=== PATIENT | female | born 1990 | race Caucasian/White ===

== ENCOUNTER 2018-06-24 12:31 | Emergency (ER) | payer OTHER, SELFPAY ==
[2018-06-24 12:35] VITALS: BP 142/91; PULSE 91; RESP 16; TEMP 36.6; O2SAT 99
--- NOTE | 2018-06-24 12:35 | ED_ITS ---
HPI - Nausea/Vomiting/Diarrhea <Lorena Solares PA-C - Last Filed: 06/24/18 18:22> General Chief complaint: Nausea/Vomiting/Diarrhea Stated complaint: ABD PAIN,NAUSEA AND VOMITING Time Seen by Provider: 06/24/18 12:33 Source: patient Mode of arrival: ambulatory Limitations: no limitations History of Present Illness HPI Narrative: This 28-year-old female complains of onset of right upper quadrant and flank area pain on Tuesday along with nausea. She states that she vomited once and felt quite a bit better, still had some low level pain but able to go about her usual activities. She states that she does have this type of pain and nausea occasionally but usually resolves on its own. She thinks it was triggered by food because she was at a dinner libertarian and eating lots of different foods that she normally does not knee. She states that she has had some milder waxing and waning pain since then until today, but since this morning and has been persistent without any exacerbating or alleviating features. It tends to stay up in the right upper quadrant but can radiate around to her flank a little bit at times. She states that she has persistent nausea and has not had any fluid today because she is afraid she can't keep it down. She did have a bagel and cream cheese earlier. She denies any fever, chills, sweats. She denies any chest pain or dyspnea. She states that she has occasional mild heartburn. she denies fever, chills, or sweats.She denies any urinary symptoms. She denies any Bowel habit changes, states she has chronic loose stools, none today. She denies any possibility of , compliant with OCP. She states that she does think her pain typically is triggered by fatty foods such as gunn. Related Data Previous Rx's Medication Instructions Recorded escitalopram 10 mg tablet See Label Instructions PO QDAY 06/21/18 #135 tab norgestimate 0.18 mg/0.215 mg/0.25 1 tab PO DAILY #84 tab 06/21/18 mg-ethinyl estradiol 25 mcg tablet ondansetron HCl [Zofran] 4 mg PO Q6-8H PRN #7 tab 06/24/18 Allergies Allergy/AdvReac Type Severity Reaction Status Date / Time No Known Drug Allergies Allergy Unknown Verified 06/21/18 10:06 Review of Systems <Lorena Solares PA-C - Last Filed: 06/24/18 18:22> Review of Systems All systems reviewed & are unremarkable except as noted in HPI and below Exam <Lorena Solares PA-C - Last Filed: 06/24/18 18:22> Narrative Exam Narrative: GENERAL APPEARANCE: Patient sitting comfortably, in no distress. HEENT: PERRL, EOMI, no scleral icterus NECK: Supple LUNGS: Clear to auscultation bilaterally. HEART: Rate and rhythm regular, normal S1 and S2, no S3 or S4. ABDOMEN: Soft, nondistended, bowel sounds present x 4 quadrants, no masses palpable, no hepatosplenomegaly. Right upper quadrant tender with +Urena's sign, no guarding or rebound, no tenderness elsewhere, no CVAT EXTREMITIES: No edema DERMATOLOGIC: No jaundice or exanthem NEUROLOGIC: Alert and oriented with normal speech and coordination Initial Vital Signs Initial Vital Signs: Vital Signs Temperature 97.8 F 06/24/18 12:35 Pulse Rate 91 H 06/24/18 12:35 Respiratory Rate 16 06/24/18 12:35 Blood Pressure 142/91 H 06/24/18 12:35 Pulse Oximetry 99 06/24/18 12:35 <Angie Mcbride DO - Last Filed: 06/26/18 07:12> Initial Vital Signs Initial Vital Signs: Vital Signs Temperature 97.8 F 06/24/18 12:35 Pulse Rate 91 H 06/24/18 12:35 Respiratory Rate 16 06/24/18 12:35 Blood Pressure 142/91 H 06/24/18 12:35 Pulse Oximetry 99 06/24/18 12:35 Course <Lorena Solares PA-C - Last Filed: 06/24/18 18:22> Additional Information: Patient was feeling significantly improved prior to departure. She did not have any vomiting while here. Her pain has been chronic , recently exacerbated by diet changes/fatty foods, which she was advised to avoid Orders Ordered: Discontinued Medications Sodium Chloride (Normal Saline 0.9%) 1,000 mls @ 1,000 mls/hr IV BOLUS ONE Stop: 06/24/18 13:50 Last Infusion: 06/24/18 15:02 Dose: 0 mls/hr Admin: 06/24/18 13:21 Dose: 1,000 mls/hr Ketorolac Tromethamine (Toradol) 30 mg IV NOW ONE Stop: 06/24/18 12:50 Last Admin: 06/24/18 13:21 Dose: 30 mg Ondansetron HCl (Zofran Odt) 4 mg PO NOW ONE Stop: 06/24/18 12:50 Ondansetron HCl (Zofran) 4 mg IV NOW ONE Stop: 06/24/18 13:26 Last Admin: 06/24/18 13:27 Dose: 4 mg Pantoprazole Sodium (Protonix) 40 mg IV NOW ONE Stop: 06/24/18 12:50 Last Admin: 06/24/18 13:24 Dose: 40 mg Vital Signs - 8 hr 06/24/18 12:35 06/24/18 13:30 Temperature 97.8 F Pulse Rate 91 H 76 Respiratory Rate 16 Blood Pressure 142/91 H Blood Pressure [Right Arm] 127/56 L Pulse Oximetry 99 99 <Angie Mcbride, - Last Filed: 06/26/18 07:12> Orders Ordered: Discontinued Medications Sodium Chloride (Normal Saline 0.9%) 1,000 mls @ 1,000 mls/hr IV BOLUS ONE Stop: 06/24/18 13:50 Last Infusion: 06/24/18 15:02 Dose: 0 mls/hr Admin: 06/24/18 13:21 Dose: 1,000 mls/hr Ketorolac Tromethamine (Toradol) 30 mg IV NOW ONE Stop: 06/24/18 12:50 Last Admin: 06/24/18 13:21 Dose: 30 mg Ondansetron HCl (Zofran Odt) 4 mg PO NOW ONE Stop: 06/24/18 12:50 Ondansetron HCl (Zofran) 4 mg IV NOW ONE Stop: 06/24/18 13:26 Last Admin: 06/24/18 13:27 Dose: 4 mg Pantoprazole Sodium (Protonix) 40 mg IV NOW ONE Stop: 06/24/18 12:50 Last Admin: 06/24/18 13:24 Dose: 40 mg Vital Signs - 8 hr 06/24/18 12:35 06/24/18 13:30 Temperature 97.8 F Pulse Rate 91 H 76 Respiratory Rate 16 Blood Pressure 142/91 H Blood Pressure [Right Arm] 127/56 L Pulse Oximetry 99 99 MDM - Nausea/Vomiting/Diarrhea <Lorena Solares PA-C - Last Filed: 06/24/18 18:22> Lab Data Attestation: I reviewed the patient's lab results. Result diagrams: 06/24/18 13:05 06/24/18 13:05 Lab Results 06/24/18 06/24/18 Range/Units 13:05 13:05 WBC 8.8 (4.5-11.0) X10^3/uL RBC 4.40 (4.0-5.2) X10^6/uL Hgb 12.7 (12.0-16.0) g/dL Hct 37.8 (36-46) % MCV 86.0 (80-100) fL MCH 29.0 (26-34) PG MCHC 33.7 (30-36) % RDW 14.1 (11.6-14.8) % Plt Count 352 (150-400) X10^3/uL Neut % (Auto) 67.0 (50-75) % Lymph % (Auto) 23.1 L (25-40) % [place] % (Auto) 7.1 (3-14) % Eos % (Auto) 1.8 L (2-4) % Baso % (Auto) 1.0 (0-2) % Neut # (Auto) 5900 (0908-0030) /uL Sodium 141 (137-145) mmol/L Potassium 4.3 (3.4-5.1) mmol/L Chloride 106 (98-107) mmol/L Carbon Dioxide 24 (22-32) mmol/L BUN 13 (7-17) mg/dL Creatinine 0.60 (0.52-1.04) mg/dL Estimated GFR > 60.0 (>60) mL/min BUN/Creatinine Ratio 21.7 (6-22) Glucose 91 (70-100) mg/dL Calcium 8.9 (8.4-10.2) mg/dL Total Bilirubin 0.3 (0.2-1.3) mg/dL AST 21 (14-36) IU/L ALT 22 (9-52) IU/L Alkaline Phosphatase 65 (38-126) U/L Total Protein 7.7 (6.3-8.2) g/dL Albumin 4.0 (3.5-5.0) g/dL Globulin 3.7 (1.7-4.1) g/dL Albumin/Globulin Ratio 1.1 (1.0-2.8) Lipase 50 (23-300) U/L Point of Care Testing Test Results Negative Urine Dip Bedside Urine Glucose Negative Bedside Urine Bilirubin - Negative Bedside Urine Ketone - Negative Urine Specific [place] 1.030 Bedside Urine Occult Blood - Negative Bedside Urine pH 6.0 Bedside Urine Protein - Negative Bedside Urine Urobilinogen - Negative Bedside Urine Nitrite - Negative Bedside Urine Leukocytes - Negative Esterase Imaging Data US - abdomen: Radiologist's impression: [address] [id number] Ultrasound Report Signed Patient: Ursula Burns [facility]#: [id number] : 1990Acct:[id number] Age/Sex: 28 / FDate of Service: 06/24/18 Loc: ED Accession Number: [id number] Procedure: US abdomen complete Ordering Provider: Lorena Solares P.A-C PROCEDURE: US ABDOMEN COMPLETE INDICATIONS: ruq pain TECHNIQUE: Real-time scanning was performed of the abdominal and retroperitoneal organs, with image documentation. COMPARISON: None. FINDINGS: Liver: Liver is normal in size and homogeneous in echotexture. Gallbladder: Gallbladder is sonographically normal. No gallstones. No gallbladder wall thickening. No pericholecystic fluid. No sonographic Urena sign. Biliary ducts: Intrahepatic bile ducts are non-dilated. Extrahepatic bile duct caliber measures 5.0 mm. Normal is 6-7 mm or less in diameter, or 10 mm or less post-cholecystectomy. Pancreas: Visualized portions of the pancreas are sonographically normal. Spleen: Spleen is normal in size and homogeneous in echotexture. Kidneys: Kidneys are normal in size and echotexture. Right kidney measures 11.5 cm long; left kidney measures 13.0 cm long. No hydronephrosis or nephrolithiasis. No solid masses. Aorta: Visualized aorta is normal in caliber at less than 3 cm. distal segment not visualized due to bowel gas and cannot be evaluated. Iliacs: Not visualized due to bowel gas and cannot be evaluated. IVC: Intrahepatic inferior vena cava is patent. Miscellaneous: No free abdominal fluid. IMPRESSION: No sonographic abnormality identified. Dictated by: Emily Alcaraz MD, PhD on 06/24/2018 at 13:51 Approved by: Emily Alcaraz MD, PhD on 06/24/2018 at 13:52 <Angie Chad Mcbride, DO - Last Filed: 06/26/18 07:12> Lab Data Lab Results 06/24/18 06/24/18 Range/Units 13:05 13:05 WBC 8.8 (4.5-11.0) X10^3/uL RBC 4.40 (4.0-5.2) X10^6/uL Hgb 12.7 (12.0-16.0) g/dL Hct 37.8 (36-46) % MCV 86.0 (80-100) fL MCH 29.0 (26-34) PG MCHC 33.7 (30-36) % RDW 14.1 (11.6-14.8) % Plt Count 352 (150-400) X10^3/uL Neut % (Auto) 67.0 (50-75) % Lymph % (Auto) 23.1 L (25-40) % [place] % (Auto) 7.1 (3-14) % Eos % (Auto) 1.8 L (2-4) % Baso % (Auto) 1.0 (0-2) % Neut # (Auto) 5900 (0703-8079) /uL Sodium 141 (137-145) mmol/L Potassium 4.3 (3.4-5.1) mmol/L Chloride 106 (98-107) mmol/L Carbon Dioxide 24 (22-32) mmol/L BUN 13 (7-17) mg/dL Creatinine 0.60 (0.52-1.04) mg/dL Estimated GFR > 60.0 (>60) mL/min BUN/Creatinine Ratio 21.7 (6-22) Glucose 91 (70-100) mg/dL Calcium 8.9 (8.4-10.2) mg/dL Total Bilirubin 0.3 (0.2-1.3) mg/dL AST 21 (14-36) IU/L ALT 22 (9-52) IU/L Alkaline Phosphatase 65 (38-126) U/L Total Protein 7.7 (6.3-8.2) g/dL Albumin 4.0 (3.5-5.0) g/dL Globulin 3.7 (1.7-4.1) g/dL Albumin/Globulin Ratio 1.1 (1.0-2.8) Lipase 50 (23-300) U/L Point of Care Testing Test Results Negative Urine Dip Bedside Urine Glucose Negative Bedside Urine Bilirubin - Negative Bedside Urine Ketone - Negative Urine Specific [place] 1.030 Bedside Urine Occult Blood - Negative Bedside Urine pH 6.0 Bedside Urine Protein - Negative Bedside Urine Urobilinogen - Negative Bedside Urine Nitrite - Negative Bedside Urine Leukocytes - Negative Esterase Discharge Plan Departure Patient Disposition: Home Clinical Impression: Right upper quadrant abdominal pain, Nausea Discharge Date/Time: 06/24/18 15:13 Interventions: ED Discharge Assessment Last Done: 06/24/18 15:12 Activity Restrictions/Additional Instructions: Please return as we talked about if you have any acutely worsening symptoms again, or new symptoms such as fever. Please use the antinausea medicine and [id number] pain medicine as needed. Please eat small amounts of bland food rather than large meals and plenty of clear fluids. Avoid all fatty foods. Prescriptions: New ondansetron HCl [Zofran] 4 mg tablet 4 mg PO Q6-8H PRN (Reason: nausea and vomiting) Qty: 7 RF: 0 No Action escitalopram oxalate [Lexapro] 10 mg tablet See Label Instructions PO QDAY Qty: 135 RF: 1 norgestimate-ethinyl estradiol [Ortho Tri-Cyclen LO (28)] 0.18/0.215/0.25 mg- 25 mcg tablet 1 tab PO DAILY Qty: 84 RF: 3 Referrals: Fatmata Hassan ARNP [Primary Care Provider] - <Angie Mcbride DO - Last Filed: 06/26/18 07:12> Cosign ED Attending Cosignature Attestation: I was immediately available in the department for consultation. This documentation has been reviewed and I agree with assessment and plan. Supervised by Angie Mcbride DO
--- NOTE | 2018-06-24 12:51 | DI.US.S_ITS ---
PROCEDURE: US ABDOMEN COMPLETE INDICATIONS: ruq pain TECHNIQUE: Real-time scanning was performed of the abdominal and retroperitoneal organs, with image documentation. COMPARISON: None. FINDINGS: Liver: Liver is normal in size and homogeneous in echotexture. Gallbladder: Gallbladder is sonographically normal. No gallstones. No gallbladder wall thickening. No pericholecystic fluid. No sonographic Urena sign. Biliary ducts: Intrahepatic bile ducts are non-dilated. Extrahepatic bile duct caliber measures 5.0 mm. Normal is 6-7 mm or less in diameter, or 10 mm or less post-cholecystectomy. Pancreas: Visualized portions of the pancreas are sonographically normal. Spleen: Spleen is normal in size and homogeneous in echotexture. Kidneys: Kidneys are normal in size and echotexture. Right kidney measures 11.5 cm long; left kidney measures 13.0 cm long. No hydronephrosis or nephrolithiasis. No solid masses. Aorta: Visualized aorta is normal in caliber at less than 3 cm. distal segment not visualized due to bowel gas and cannot be evaluated. Iliacs: Not visualized due to bowel gas and cannot be evaluated. IVC: Intrahepatic inferior vena cava is patent. Miscellaneous: No free abdominal fluid. IMPRESSION: No sonographic abnormality identified. Dictated by: Emily Alcaraz MD, PhD on 06/24/2018 at 13:51 Approved by: Emily Alcaraz MD, PhD on 06/24/2018 at 13:52
[2018-06-24 13:15] LABS: Add Manual Diff / Slide Review NO; Eosinophils Percent Auto 1.8 % (2-4); Hematocrit 37.8 % (36-46); Hemoglobin 12.7 g/dL (12.0-16.0); Lymphocytes Percent Auto 23.1 % (25-40); Mean Corpuscular HGB Conc 33.7 % (30-36); Monocytes Percent Auto 7.1 % (3-14); Neutrophils Absolute Auto 5900 /uL (3000-5900); Platelet Count 352 X10^3/uL (150-400); Red Cell Distribution Width 14.1 % (11.6-14.8); White Blood Cell Count 8.8 X10^3/uL (4.5-11.0)
[2018-06-24] MEDS: SODIUM CHLORIDE 0.9% 1,000 ML 1000 ML IV (13:21)
[2018-06-24] MEDS: KETOROLAC 60 MG/2 ML VIAL 30 MG IV (13:21)
[2018-06-24] MEDS: PANTOPRAZOLE 40 MG VIAL IV (13:24)
[2018-06-24 13:27] LABS: Alanine Aminotransferase 22 IU/L (9-52); Albumin Globulin Ratio 1.1 (1.0-2.8); Alkaline Phosphatase 65 U/L (38-126); Aspartate Aminotransferase 21 IU/L (14-36); BUN Creatinine Ratio 21.7 (6-22); Bilirubin Total 0.3 mg/dL (0.2-1.3); Blood Urea Nitrogen 13 mg/dL (7-17); Calcium 8.9 mg/dL (8.4-10.2); Carbon Dioxide 24 mmol/L (22-32); Chloride 106 mmol/L (98-107); Estimated Glomerular Filt Rate > 60.0 mL/min (>60); Globulin 3.7 g/dL (1.7-4.1); Glucose 91 mg/dL (70-100); HEMOLYSIS 19 (0-50); Lipase 50 U/L (23-300); Potassium 4.3 mmol/L (3.4-5.1); Sodium 141 mmol/L (137-145); Total Protein 7.7 g/dL (6.3-8.2)
[2018-06-24] MEDS: ONDANSETRON 4 MG/2 ML INJ IV (13:27)
[2018-06-24 13:30] VITALS: BP 127/56; PULSE 76; O2SAT 99
== END 2018-06-24 15:13 | disposition home or self-care (01) ==
PROVIDERS: Emergency Provider Internal Medicine; Family Provider Internal Medicine; PCP Internal Medicine
DX: R10.11 Right upper quadrant pain (principal); R11.0 Nausea
CPT/HCPCS: 36591; 76700; 80053; 81003; 81025; 83690; 85025; 96361; 96374; 96375; 99283; 99284; C9113; J1885; J2405

== ENCOUNTER → 2018-06-27 11:39 | Outpatient (CLI) | payer OTHER, SELFPAY | PROVIDERS: PCP Internal Medicine; Visit Provider Internal Medicine | DX: R10.11 Right upper quadrant pain (principal) | CPT/HCPCS: 86677 ==